=== PATIENT | female | born 1940 | race Caucasian/White ===

== ENCOUNTER 2018-07-09 08:08 | Inpatient (IN) | payer MEDICARE, BC ==
[2018-07-09] MEDS ORDERED: AMITRIPTYLINE H50 MG PO (08:14)
[2018-07-09] MEDS ORDERED: HYDROCODON-ACE1 EAC2 PO (08:15)
[2018-07-09] MEDS ORDERED: UNITHROID50 MCG PO (08:15)
[2018-07-09] MEDS ORDERED: FOLIC ACID1 MG PO (08:16)
[2018-07-09] MEDS ORDERED: [UNRECOGNIZED DRUG - OTHER] (08:16)
[2018-07-09] MEDS ORDERED: METOPROLOL TART25 MG PO (08:17)
[2018-07-09] MEDS ORDERED: DYRENIUM50 MG PO (08:17)
[2018-07-09] MEDS ORDERED: NEURONTIN800 MG PO (08:18)
[2018-07-09 08:45] LABS: BASOPHILS 0.4 % (0-2); EOSINOPHILS 0.5 % (0-7); HEMATOCRIT 36.9 % (36.0-48.0); HEMOGLOBIN 12.7 g/dL (12-16); IMMATURE GRANULOCYTES 0.4 % (0-5); LYMPHOCYTES 14.4 % (15-50); MCHC 34.4 g/dL (31.0-37.0); MCV 92.9 fL (80.0-100.0); MEAN PLATELET VOLUME 9.7 fL (7.4-10.4); MONOCYTES 7.5 % (2-11); NEUTROPHILS 76.8 % (40-80); PLATELET COUNT 152 10x3/uL (130-400); RBC 3.97 10x6/uL (4.00-5.40); RDW 15.1 % (11.5-14.5); WBC 8.3 10x3/uL (4.8-10.8)
[2018-07-09 09:00] LABS: APPEARANCE CLEAR (CLEAR); BILIRUBIN NEGATIVE (NEGATIVE); COLOR YELLOW (YELLOW); GLUCOSE NEGATIVE (NEGATIVE); KETONE NEGATIVE (NEGATIVE); NITRITE NEGATIVE (NEGATIVE); PROTEIN NEGATIVE (NEGATIVE); UROBILINOGEN NORMAL (NORMAL)
[2018-07-09 09:01] LABS: ALBUMIN 3.4 g/dL (3.4-5.0); ANION GAP 11.8 mmol/L (8-16); BILIRUBIN - TOTAL 0.52 mg/dL (0.2-1.3); CALCIUM 8.9 mg/dL (8.5-10.1); CARBON DIOXIDE 27.4 mmol/L (21.0-32.0); CREATININE - SERUM 0.8 mg/dL (0.6-1.3); POTASSIUM - SERUM 4.2 mmol/L (3.5-5.1); PROTEIN - SERUM 7.4 g/dL (6.4-8.2)
[2018-07-09 09:22] LABS: CKMB 0.3 U/L (0.0-3.6); CREATINE KINASE 51 UL (21-215)
[2018-07-09 09:24] LABS: TROPONIN-I < 0.017 ng/mL (0.000-0.060)
--- NOTE | 2018-07-09 11:45 | NUR ---
PATIENT ARRIVED TO THE FLOOR VIA WHEELCHAIR WITH HER SPOUSE AND ER CERAMIC TILE INSTALLATION HELPER. INTRODUCTIONS MADE, DEMONSTRATED THE CALL LIGHT. NO TELE BOX IS AVAILABLE AT THIS TIME
--- NOTE | 2018-07-09 12:54 | MORECARE ---
CASE MANAGEMENT DISCHARGE SUMMARY PATIENT: MAGED LAINEZ UNIT: [id number] ADM DATE: 07/09/18 AGE: 77 : 40 SEX: F ROOM/BED: D.1203 AUTHOR: SELIN NG PHYSICIAN: REFERRING PHYSICIAN: NATA OWEN MD DATE OF SERVICE: 07/09/18 Discharge Plan Patient Name: MAGED LAINEZ Facility: [facility]:[place] : 1940 Planned Disposition: Home Anticipated Discharge Date: Discharge Date: Expected LOS: Initial Reviewer: [id number] Initial Review Date: 07/09/2018 Generated: 07/09/18 1:54 pm Comments DCP- Discharge Planning Updated by [id number]: Lisa Zapata on 07/09/18 11:[address] Patient Name: MAGED LAINEZ Admission Status: ER Accout number: [id number] Admission Date: 07-09-2018 : 1940 Admission Diagnosis: Attending: NATA OWEN Current LOS: 1 Anticipated DC Date: Planned Disposition: Home Primary Insurance: MEDICARE A & B Discharge Planning Comments: CM MEET WITH PT AFTER GETTING VERBAL CONSENT TO CONTINUE WITH INITAL ASSESSMENT AND DISCHARGE NEEDS. CM EDUCATED ON ROLE OF CM AND THE SERVICES AVALIABLE SUCH HH, REHAB AND DME SERVICES. PT LIVES AT HOME WITH , HOME SHE STATES IS A SAFE DC PLAN. WILL DRIVE HOME. CM WILL CONTINUE TO FOLLOW. Environmental Scientist: Lisa Zapata DCPIA - Discharge Planning Initial Assessment Updated by [email or web address]: Lisa Zapata on 07/09/18 12:51 pm * Is the patient Alert and Oriented? Yes * How many steps to enter\exit or inside your home? * PCP BRAZILIAN * [facility] * Preadmission Environment Home with Family * ADLs Independent * Verbal permission to speak to the caregivers and representatives has been obtained from the patient. Yes * Additional services required to return to the preadmission environment? No * Can the patient safely return to the preadmission environment? Yes * Has this patient been hospitalized within the prior 30 days at any hospital? No Patient Name: MAGED LAINEZ Page 16086 at 1254 All edits/amendments must be made on the electronic document DICTATION DATE: 07/09/181253 RESPIRATORY SCIENTIST: JULIAN 07/09/181253 RPT#: [id number] DC DATE: STATUS: ADM IN [facility] [address] [place] [address] END OF REPORT
[2018-07-09 13:07] VITALS: BP 164/77
[2018-07-09 14:15] VITALS: BMI 25.8
[2018-07-09 16:33] VITALS: BP 107/68
[2018-07-09 21:34] VITALS: BP 142/57
[2018-07-10] VITALS: BP 122/62
[2018-07-10 04:00] VITALS: BP 113/69
--- NOTE | 2018-07-10 04:47 | NUR ---
PT IN BED IN LOW FOWLERS POSITION. ALERT AND ORIENTED X4. RESPIRATIONS EVEN AND UNLABORED. VS STABLE AND AFEBRIL. NO CUES OF DISTRESS NOTED. DENIES ANY OTHER NEEDS AT THIS TIME. BED LOW, SIDE RAILS UP X2. CALL LIGHT IN REACH. WILL CONTINUE TO MONITOR.
[2018-07-10 07:00] LABS: BASOPHILS 0.5 % (0-2); EOSINOPHILS 1.9 % (0-7); HEMATOCRIT 31.9 % (36.0-48.0); HEMOGLOBIN 10.6 g/dL (12-16); IMMATURE GRANULOCYTES 0.5 % (0-5); LYMPHOCYTES 34.4 % (15-50); MCH 31.2 pg (26.0-34.0); MCHC 33.2 g/dL (31.0-37.0); MCV 93.8 fL (80.0-100.0); MONOCYTES 10.5 % (2-11); NEUTROPHILS 52.2 % (40-80); PLATELET COUNT 134 10x3/uL (130-400); RDW 15.1 % (11.5-14.5)
--- NOTE | 2018-07-10 07:14 | HP ---
PATIENT: MAGED LAINEZ MEDICAL RECORD: [id number] ACCOUNT: [id number] LOCATION:[address] : [birth year] ADMISSION DATE: 07/09/18 PCP: NATA OWEN MD HISTORY AND PHYSICAL EXAMINATION REASON FOR ADMISSION: Fever and confusion with cough. HISTORY OF PRESENT ILLNESS: The patient is a 77-year-old female with history of fibromyalgia and psoriatic arthritis. She states that she was placed on methotrexate sometime in the past, but more recently Enbrel. Says she has had trouble with inspiratory right-sided chest pain for several weeks. Over the weekend, she developed increasing cough, some confusion, and pain on deep breathing. Cough is nonproductive until yesterday when she has some sputum production. states she was somewhat confused yesterday and had low-grade temperature to 100 with a normal temperature being 97 degrees to 98 degrees Fahrenheit. This morning, she was too weak to get out of bed and was seen more confused and he brought her to the Emergency Room. Dr. Miller evaluated her and felt she had pneumonia, admitted her for same. He ordered a CTA due to an elevated D-dimer that is currently pending. His interpretation of the chest x-ray was consistent with right lower lobe pneumonia, though radiology read as negative. She now seems fairly alert and has no new complaints except as mentioned above. PAST MEDICAL HISTORY: Fibromyalgia, psoriatic arthritis, depression, insomnia, osteoarthrosis, degenerative disc disease, essential hypertension, hypothyroidism, and vitamin D deficiency. History of hepatitis was hepatitis B, followed by GI. History of plantar pustulosis. PAST SURGICAL HISTORY: She has had hyaluronic acid injections to her knees in 2010. She has a left neuroplasty 2008. The injections again on 11/2015. 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 She had lumbar back surgery in 1997 and 1986. 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 She has had cataract extraction bilaterally. Cervical nerve blocks. FAMILY HISTORY: Father , had hypertension, at 80. Mother at over 100. She had dementia and hypertension. SOCIAL HISTORY: She is right handed. She is a nonsmoker and nondrinker. She has 3 sons and 1 daughter. She is and not currently smoking. CURRENT MEDICATIONS: Hydrocodone 7.5 one every 6 hours p.r.n. severe breakthrough pain, amitriptyline 50 mg at bedtime, levothyroxine 50 mcg p.o. q.a.m., Dyazide 1 q.a.m., metoprolol tartrate 25 mg p.o. b.i.d., hydroxyzine 25 mg q.4 hours p.r.n. itching, famotidine 20 mg p.o. b.i.d., vitamin D2 50,000 unit capsule 1 by mouth weekly, gabapentin 800 mg tablet p.o. t.i.d., amlodipine 5 mg daily, Restasis 0.05% drops to both eyes daily. REVIEW OF SYSTEMS: GENERAL: Fatigued with fever for the last 24-48 hours. HEENT: No recent visual change. She does have intermittent headache is not severe. Denies sinus congestion, hearing difficulty. RESPIRATORY: He has had slight cough and pleuritic-like right-sided chest pain off and on for the last several weeks, worse over the last 48 hours. Cough has been minimally productive. No hemoptysis. Does not have exertional dyspnea. HISTORY AND PHYSICAL [id number] MAGED LAINEZ CARDIAC: No palpitations, PND, orthopnea, claudication. GASTROINTESTINAL: No nausea, vomiting, change in stools, or blood per rectum. GENITOURINARY: Mild incontinence, no dysuria. GYNECOLOGIC: No vaginal bleeding. ENDOCRINE: Denies polyuria, polydipsia, heat or cold intolerance. NEUROLOGIC: No history of stroke, TIA, or vascular headaches in the past. No history of seizures. INTEGUMENT: Marked improvement of in her plantar pustulosis with minimal dryness of her skin currently. MUSCULOSKELETAL: Chronic arthralgias in multiple joints. PHYSICAL EXAMINATION: VITAL SIGNS: Temperature 100.0 Fahrenheit orally, pulse 93 and regular, respirations are 22, blood pressure was 177/93 with O2 sat of 90% on room air. GENERAL: The patient is alert and oriented to person, place, and time, not confused. Eyes are clear with evidence of prior corneal transplant. Pupils are reactive. Sclerae nonicteric. Oropharynx, mucous membranes are not dry. CHEST: Distant breath sounds without wheeze or rales. She complains of pleurisy in the right anterior chest wall in deep inspiration. HEART: Regular rate and rhythm. BREASTS: Symmetrical. ABDOMEN: Soft, nontender. No organomegaly. PELVIC: Deferred. EXTREMITIES: She has Heberden's nodes in her DIP joints bilaterally. Shoulders good range of motion. Knees have crepitus with flexion and extension. BACK: Shows limited lumbar flexion. Gait is normal. Neurovascular oriented to person, place, and time. Cranial nerves intact. Gait normal. Reflexes 1+ symmetrically. LABORATORY DATA: White count is 8300 with differential 76.8 neutrophils 14% lymphocytes, H and H is 12.7 and 36.9 respectively. Chemistry: Sodium is 134, glucose is 102, and lactic is 1.2. Liver functions are normal. Cardiac enzymes are negative. D-dimer is 1.09. Urinalysis is clear. Chest x-ray was read as normal by radiology showing early infiltrate right lower lobe per ED. ASSESSMENT: 1. Fever, etiology unknown. 2. Possible community-acquired pneumonia. 3. Psoriatic arthritis on remittive drugs. 4. Depression. 5. Fibromyalgia. 6. History of hepatitis B. 7. Essential hypertension. 8. Hypothyroidism. 9. Vitamin D deficiency. PLAN: The patient will be cultured. CTA was ordered by ED that was currently pending. We will place on [facility]. Monitor mental status closely. Further workup pending clinical course. We will hold methotrexate currently. TRANSINT:[id number] Voice Confirmation ID: [id number] DOCUMENT ID: [id number] HISTORY AND PHYSICAL [id number] MAGED LAINEZ TIMOTHY MD at 0714 CC: [id number] DICTATION DATE: 07/09/18 172 LUMBER PLANER: 07/09/18 1840 ADM IN [facility] [id number] [place] [address]
--- NOTE | 2018-07-10 07:16 | NUR ---
INITIAL ROUNDING, THE PATIENT IS RESTING WITH EYES CLOSED, SPOUSE AT THE BEDSIDE. PATIENT DID NOT WAKE WITH ROUNDING. SHE HAS O2 VIA NC IN PLACE. NO S/S OF SOB/DISTRESS
[2018-07-10 07:20] LABS: WBC 3.7 10x3/uL (4.8-10.8)
[2018-07-10 07:25] LABS: ANION GAP 9.5 mmol/L (8-16); CALCIUM 8.1 mg/dL (8.5-10.1); CREATININE - SERUM 0.8 mg/dL (0.6-1.3)
[2018-07-10 07:37] LABS: POTASSIUM - SERUM 3.5 mmol/L (3.5-5.1)
[2018-07-10 08:56] VITALS: BP 133/60
[2018-07-10 16:39] VITALS: BP 140/85
[2018-07-10 16:52] VITALS: BP 147/63
[2018-07-10 21:00] VITALS: BP 144/61
[2018-07-11] VITALS: BP 131/71; BP 144/61
[2018-07-11 04:00] VITALS: BP 148/66
[2018-07-11 06:58] LABS: BASOPHILS 0.5 % (0-2); EOSINOPHILS 1.9 % (0-7); HEMATOCRIT 32.6 % (36.0-48.0); HEMOGLOBIN 10.9 g/dL (12-16); IMMATURE GRANULOCYTES 0.2 % (0-5); LYMPHOCYTES 31.1 % (15-50); MCH 31.5 pg (26.0-34.0); MCHC 33.4 g/dL (31.0-37.0); MCV 94.2 fL (80.0-100.0); MONOCYTES 15.5 % (2-11); NEUTROPHILS 50.8 % (40-80); PLATELET COUNT 156 10x3/uL (130-400); RBC 3.46 10x6/uL (4.00-5.40); RDW 15.1 % (11.5-14.5); WBC 4.3 10x3/uL (4.8-10.8)
[2018-07-11 07:05] LABS: CALC OSMOLALITY 269 mosm/kg (275-300); CALCIUM 7.9 mg/dL (8.5-10.1); CARBON DIOXIDE 27.8 mmol/L (21.0-32.0); CHLORIDE - SERUM 102 mmol/L (98-107); CREATININE - SERUM 0.6 mg/dL (0.6-1.3); GLUCOSE 93 mg/dL (74-106); POTASSIUM - SERUM 3.8 mmol/L (3.5-5.1); SODIUM 136 mmol/L (136-145); UREA NITROGEN 8 mg/dL (7-18); eGFR NON AFRICAN AMERICAN > 90 mL/min (90-120)
--- NOTE | 2018-07-11 07:40 | NUR ---
INITIAL ROUNDING ON THE PATIENT, SHE IS ASLEEP SUPINE WITH HOB AT 20 DEGREES, GRANDDAUGHTER ASLEEP IN BEDSIDE CHAIR, NO S/S OF DISTRESS NOTED.
[2018-07-11 09:24] VITALS: BP 141/67
[2018-07-11 13:32] VITALS: BMI 25.8
[2018-07-11 18:30] VITALS: BP 180/56
[2018-07-11 18:53] VITALS: BP 147/62
[2018-07-11 20:00] VITALS: BP 143/61
[2018-07-12] VITALS: BP 120/57
[2018-07-12 04:00] VITALS: BP 155/67
--- NOTE | 2018-07-12 07:20 | NUR ---
PT ALERT AND ORIENTED. RESTING IN BED, EYES OPEN. NO C/O PAIN. NO S/S OF ACUTE DISTRESS NOTED. UP WITH ASSIST. SCDS PRESENT, OFF AT THIS TIME. ON ELECTROLYTE PROTOCOL. ON 2L O2, NC. IV TO RIGHT FOREARM, SL. SITE PATENT WITHOUT REDNESS OR SWELLING. PT DENIES ANYTHING FURTHER AT THIS TIME. CALL LIGHT IN REACH. WILL CONTINUE TO MONITOR.
[2018-07-12 09:41] VITALS: BP 123/60
[2018-07-12 13:53] VITALS: BP 142/66
--- NOTE | 2018-07-12 18:15 | NUR ---
PT RESTING IN BED, EYES OPEN. ALERT AND ORIENTED. FAMILY AT BEDSIDE. C/O PAIN, GAVE NORCO FOR PAIN. NO S/S OF ACUTE DISTRESS. PT DENIES ANYTHING FURTHER. WILL CONTINUE TO MONITOR.
[2018-07-12 19:43] VITALS: BP 156/62
[2018-07-13 04:43] VITALS: BP 164/73
[2018-07-13 08:14] VITALS: BP 149/60
--- NOTE | 2018-07-13 08:15 | NUR ---
CALLED PHARMACY AND SPOKE WITH ARIAN, INFOMRED HIM THAT MED 3 PYXIS IS OUT OF THE 400MG NUEROTIN.
--- NOTE | 2018-07-13 08:28 | NUR ---
AM MEDS GIVEN AT THIS TIME. PT REFUSED TO TAKE HER ELAVIL STATES THAT SHE TAKES IT AT NIGHT. PT DNEIES ANY NEEDS AT THIS TIME. CALL LIGHT IN REACH, FAMILY AT BEDSIDE, NAD NOTED, WILL CONTINUE TO MONITOR.
[2018-07-13 13:17] VITALS: BP 168/61
--- NOTE | 2018-07-13 14:14 | NUR ---
PT IN BED, READING THE NEWSPAPER. DENEIS ANY NEEDS AT THIS TIME. CALL LIGHT IN REACH, FAMILY AT BEDSIDE, NAD NOTED, WILL CONTINUE PLAN OF CARE.
[2018-07-13 16:09] VITALS: BP 142/61
--- NOTE | 2018-07-13 19:08 | NUR ---
PATIENT RESTING IN BED AND DENIES NEEDS AT THIS TIME. BED IN LOWEST POSITION AND CALL LIGHT WITHIN REACH. ENCOURAGED THE PATIENT TO CALL IF SHE HAS NEEDS. WILL CONTINUE TO MONITOR.
[2018-07-13 20:08] VITALS: BP 124/54
[2018-07-14 00:20] VITALS: BP 180/78
[2018-07-14 04:58] VITALS: BP 167/75
[2018-07-14 07:37] VITALS: BP 182/72
--- NOTE | 2018-07-14 07:48 | NUR ---
AM MEDS GIVEN AT THIS TIME. ALSO GAVE NORCO FOR PAIN LEVEL OF 8/10. PT UP AD ERICK IN ROOM . A/OX4, RESP EVEN AND NONLABORED ON RA. RT FA IV SL. PT DENIES ANY OTHER NEEDS AT THIS TIME. CALL LIGHT IN REACH, NAD NOTED, WILL CONTINUE TO MONITOR.
[2018-07-14] MEDS ORDERED: NORVASC5 MG PO (09:30)
[2018-07-14] MEDS ORDERED: PREDNISONE10 MG PO (09:32)
[2018-07-14] MEDS ORDERED: PEPCID AC20 MG PO (09:33)
[2018-07-14] MEDS ORDERED: PEPCID PO (09:34)
--- NOTE | 2018-07-14 10:20 | NUR ---
PRESCRIPTIONS CALLED IN TO [facility], SPOKE WITH OLGA THE PHARMACIST.
--- NOTE | 2018-07-14 10:45 | NUR ---
PROVIDED VERBAL AND WRITTEN DISCHARGE TEACHING TO PT AND FAMILY AT BEDSIDE, ALL VERBALIZED UNDERSTANDING REGARDING TEACHING. D/C RT FA IV WITH CATHETER TIP INTACT. 1055- PT LEFT UNIT WITH ALL BELONGIGNS, ACCOMPANIED BY FAMILY, NAD NOTED.
--- NOTE | 2018-07-14 13:33 | MORECARE ---
CASE MANAGEMENT DISCHARGE SUMMARY PATIENT: MAGED LAINEZ UNIT: [id number] ADM DATE: 07/09/18 AGE: 77 : 40 SEX: F ROOM/BED: D.1203 AUTHOR: BERENICEDOC PHYSICIAN: REFERRING PHYSICIAN: NATA OWEN MD DATE OF SERVICE: 07/14/18 Discharge Plan Patient Name: MAGED LAINEZ Facility: [facility]:[place] : 1940 Planned Disposition: Home Anticipated Discharge Date: Discharge Date: 07/14/2018 Expected LOS: Initial Reviewer: [id number] Initial Review Date: 07/09/2018 Generated: 07/14/18 2:33 pm DCP- Discharge Planning Updated by [email or web address]: Lisa Zapata on 07/09/18 11:[address] Patient Name: MAGED LAINEZ Admission Status: ER Accout number: [id number] Admission Date: 07-09-2018 : 1940 Admission Diagnosis: Attending: NATA OWEN Current LOS: 1 Anticipated DC Date: Planned Disposition: Home Primary Insurance: MEDICARE A & B Discharge Planning Comments: CM MEET WITH PT AFTER GETTING VERBAL CONSENT TO CONTINUE WITH INITAL ASSESSMENT AND DISCHARGE NEEDS. CM EDUCATED ON ROLE OF CM AND THE SERVICES AVALIABLE SUCH HH, REHAB AND DME SERVICES. PT LIVES AT HOME WITH , HOME SHE STATES IS A SAFE DC PLAN. WILL DRIVE HOME. CM WILL CONTINUE TO FOLLOW. Punch Card Operator: Lisa Zapata DCPIA - Discharge Planning Initial Assessment Updated by [email or web address]: Lisa Zapata on 07/09/18 12:51 pm * Is the patient Alert and Oriented? Yes * How many steps to enter\exit or inside your home? * PCP * [facility] * Preadmission Environment Home with Family * ADLs Independent * Verbal permission to speak to the caregivers and representatives has been obtained from the patient. Yes * Additional services required to return to the preadmission environment? No * Can the patient safely return to the preadmission environment? Yes * Has this patient been hospitalized within the prior 30 days at any hospital? No Coverage Notice Reviewer: [id number] - Lisa Zapata Notice Issued Date-Time: 07/14/2018 10:45 Notice Type: IM Discharge Notice Notice Delivered To: Patient Relationship to Patient: Self Dairy Nutrition Consultant Name: Delivery Method: HAND - Hand Delivered Cadence Days: Prior Verbal Notification: Recipient Understood Notice: Yes Recipient Signature: Yes Med Rec Note Co-signed by Attending: Coverage Notice Comment: Last DP export: 07/09/18 11:54 a Patient Name: MAGED LAINEZ Page 33084 at 1333 All edits/amendments must be made on the electronic document DICTATION DATE: 07/14/183 BROADCAST CHIEF ENGINEER: JULIAN 07/14/18 1333 RPT#: [id number] DC DATE:07/14/18 STATUS: DIS IN [facility] [address] [place] [address] END OF REPORT
[2018-07-14 19:06] LABS: CYCLIC CITRULL PEPTIDE IGG/IGA 24 units (0-19)
[2018-07-16 11:10] LABS: ANA REFLEX - ANTICHROMATIN ABS <0.2 AI (0.0-0.9); ANA REFLEX - CENTROMERE B ABS <0.2 AI (0.0-0.9); ANA REFLEX - DBL STRANDED DNA 3 IU/mL (0-9); ANA REFLEX - DIRECT Positive (Negative); ANA REFLEX - JO-1 AB <0.2 AI (0.0-0.9); ANA REFLEX - RNP ANTIBODIES 0.6 AI (0.0-0.9); ANA REFLEX - SCL-70 1.3 AI (0.0-0.9); ANA REFLEX - SJOGRENS AB SSA <0.2 AI (0.0-0.9); ANA REFLEX - SJOGRENS AB SSB <0.2 AI (0.0-0.9); ANA REFLEX - SMITH AB <0.2 AI (0.0-0.9)
[2018-07-16 16:08] LABS: ANCA - ANTIMYELOPEROXIDASE <9.0 U/mL (0.0-9.0); ANCA - ANTIPROTEINASE 3 <3.5 U/mL (0.0-3.5); ANCA - ATYPICAL <1:20 titer (Neg:<1:20); ANCA - CYTOPLASMIC <1:20 titer (Neg:<1:20); ANCA - PERINUCLEAR <1:20 titer (Neg:<1:20)
[2018-07-17 03:07] LABS: MYCOPLASMA PNEUMO IGG 561 U/mL (0-99)
== END 2018-07-14 10:56 | disposition home or self-care (01) | DRG 193 ==
LOC: D.ER 08:08 → D.M3 10:52
PROVIDERS: Family Medicine; Internal Medicine Pulmonary Disease; ADMIT Family Medicine; ATTEND Family Medicine
DX: J18.9 Pneumonia, unspecified organism (principal); G93.41 Metabolic encephalopathy; J84.9 Interstitial pulmonary disease, unspecified; J98.11 Atelectasis; I50.30 Unspecified diastolic (congestive) heart failure; B19.10 Unspecified viral hepatitis B without hepatic coma; L40.50 Arthropathic psoriasis, unspecified; F32.9 Major depressive disorder, single episode, unspecified; E03.9 Hypothyroidism, unspecified; E55.9 Vitamin D deficiency, unspecified; M79.7 Fibromyalgia; K44.9 Diaphragmatic hernia without obstruction or gangrene; I27.21 Secondary pulmonary arterial hypertension; I08.2 Rheumatic disorders of both aortic and tricuspid valves; D70.9 Neutropenia, unspecified; R09.1 Pleurisy; M06.9 Rheumatoid arthritis, unspecified; G62.9 Polyneuropathy, unspecified; I11.0 Hypertensive heart disease with heart failure; M19.90 Unspecified osteoarthritis, unspecified site; D64.9 Anemia, unspecified; D72.819 Decreased white blood cell count, unspecified

== ENCOUNTER → 2018-08-19 15:56 | Outpatient (CLI) | payer MEDICARE, BC ==
[~2018-08-19 15:56] MED LIST: AMITRIPTYLINE H50 MG PO; DYRENIUM50 MG PO; FOLIC ACID1 MG PO; HYDROCODON-ACE1 EAC2 PO; METOPROLOL TART25 MG PO; NEURONTIN800 MG PO; NORVASC5 MG PO; PEPCID AC20 MG PO; PEPCID PO; PREDNISONE10 MG PO; UNITHROID50 MCG PO; [UNRECOGNIZED DRUG - OTHER]
== END | disposition home or self-care (01) ==
LOC: D.RAD 15:56
PROVIDERS: ATTEND Family Medicine
DX: J18.9 Pneumonia, unspecified organism (principal); J84.9 Interstitial pulmonary disease, unspecified

== ENCOUNTER → 2019-04-21 08:07 | Outpatient (CLI) | payer MEDICARE, BC | END | disposition home or self-care (01) | LOC: D.NM 08:00 | PROVIDERS: ATTEND Family Medicine | DX: R10.11 Right upper quadrant pain (principal) ==